=== PATIENT | female | born 1960 | race Caucasian/White ===

== ENCOUNTER 2018-02-02 13:37 | Emergency (ER) | payer BC ==
[2018-02-02 14:10] LABS: Bilirubin Negative (Negative); Blood, Urine Negative (Negative); Clarity CLEAR (Clear); Glucose, Urine (Dipstick) Negative (Negative); Leukocyte Negative (Negative); Nitrite Negative (Negative); Protein, Urine (Dipstick) Negative (Neg-Trace); Specific Gravity, Urine 1.014 (1.002-1.036); Urobilinogen 0.2 mg/dL (0.2-1.0)
[2018-02-02 14:34] LABS: #Basophils 0.1 thou/uL (0.0-0.2); #Eosinphils 0.5 thou/uL (0.0-0.7); #Lymphocytes 2.6 thou/uL (1.20-3.40); #Monocytes 0.6 thou/uL (0.11-0.59); #Neutrophils 4.5 thou/uL (1.40-6.50); %Basophils 1.1 % (0.0-1.0); %Eosinophils 6.5 % (0.0-10.0); %Lymphocytes 31.6 % (21.0-51.0); %Monocytes 7.3 % (0.0-10.0); %Neutrophils 53.5 % (42.0-75.0); Hemoglobin 10.1 g/dL (12.0-16.0); Mean Corpuscular HGB CONC 31.8 g/dL (32.0-36.0); Mean Corpuscular Hemoglobin 26.4 pg (27.0-31.0); Mean Corpuscular Volume 83.1 fL (78.0-98.0); Mean Platelet Volume 6.7 fL (7.4-10.4); Platelet Count 371 thou/uL (130-400); RBC Distribution Width 15.4 % (11.5-14.5); Red Blood Cell (RBC) Count 3.81 mill/uL (4.20-5.40); White Blood Cell (WBC) Count 8.4 thou/uL (4.8-10.8)
[2018-02-02 14:56] LABS: ALT (SGPT) 11 U/L (8-55); AST (SGOT) 14 U/L (5-34); Albumin 3.9 g/dL (3.5-5.0); Alkaline Phosphatase 90 U/L (40-150); Anion Gap 11 mmol/L (10-20); BUN (Urea Nitrogen) 22 mg/dL (9.8-20.1); Bilirubin, Total 0.2 mg/dL (0.2-1.2); Calc. Creatinine Clearance 0 mL/min (70-130); Calcium 9.4 mg/dL (7.8-10.44); Carbon Dioxide 26 mmol/L (22-29); Chloride 107 mmol/L (98-107); Estimated GFR-MDRD 79; Globulin 2.3 g/dL (2.4-3.5); Glucose 85 mg/dL (70-105); Potassium 4.2 mmol/L (3.5-5.1); Protein, Total 6.2 g/dL (6.0-8.3); Sodium 140 mmol/L (136-145)
[2018-02-02] MEDS ORDERED: Ketorolac Tromethamine 30 MG/ML VIAL ONE (15:03)
[2018-02-02] MEDS ORDERED: Methocarbamol 500 MG TAB PO SCH (15:30)
--- NOTE | 2018-02-02 16:25 | CT ---
CT ABDOMEN AND PELVIS WITH CONTRAST 02/02/18 COMPARISON: 03/21/17. HISTORY: Left flank pain and left abdominal pain while sitting at her desk at work. TECHNIQUE: Multiple contiguous axial images were obtained in a CT of the abdomen and pelvis with contrast. Coron al reformats were performed. IMPRESSION: The patient is status post cholecystectomy and hysterectomy. Surgical changes are seen in the anterio r aspect of the right kidney. The liver, left kidney, adrenal glands, spleen, and pancreas are unrema rkable. No free air, free fluid, or stranding changes are seen in the abdomen or pelvis. Postsurgical changes are seen in the stomach. There is a small hiatal hernia. There are a few scatter ed diverticula in the colon. The small bowel is normal in caliber. No abdominal or pelvic lymphadenopathy are seen. Atherosclerotic calcifications are seen in the aorta . Degenerative changes are seen in the spine. The visualized inferior thorax and abdominal wall soft tissues are unremarkable. IMPRESSION: 1. No evidence of acute intra-abdominal/pelvic abnormality. 2. Diverticulosis. POS: [facility]
== END 2018-02-02 16:30 | disposition home or self-care (01) ==
LOC: ERS 13:37
DX: M54.32 Sciatica, left side (principal); F98.8 Other specified behavioral and emotional disorders with onset usually occurring in childhood and adolescence; F17.210 Nicotine dependence, cigarettes, uncomplicated; Z79.899 Other long term (current) drug therapy
CPT/HCPCS: 36415; 74177; 80053; 81003; 85025; 87086; 96361; 96374; J1885

== ENCOUNTER 2018-11-25 21:20 | Emergency (ER) | payer BC ==
--- NOTE | 2018-11-25 22:07 | RAD ---
Right lower leg 2 views HISTORY: Right leg injury. FINDINGS: Tibia and fibula are intact. There are subtle oblique linear lucencies extending through th e anterior cortex of the upper tibia on the lateral view, through the posterior tibia on the lateral view, just posterior to the tibial spines, and through the medial base of the medial tibial s pine on the frontal view. Mild fluid distention of the suprapatellar bursa on the lateral view. IMPRESSION: Suspected nondisplaced fracture involving the proximal tibia. If this correlates with cli nical findings, CT could be performed for better evaluation.
[2018-11-25] MEDS ORDERED: Ketorolac Tromethamine 30 MG/ML VIAL ONE (23:00)
[2018-11-25] MEDS ORDERED: Fentanyl 100 MCG/2 ML VIAL ONE (23:33)
== END 2018-11-26 02:15 | disposition home or self-care (01) ==
LOC: ERS 21:20
DX: S82.141A Displaced bicondylar fracture of right tibia, initial encounter for closed fracture (principal); F98.8 Other specified behavioral and emotional disorders with onset usually occurring in childhood and adolescence; F17.210 Nicotine dependence, cigarettes, uncomplicated; Z79.899 Other long term (current) drug therapy; W01.198A Fall on same level from slipping, tripping and stumbling with subsequent striking against other object, initial encounter
CPT/HCPCS: 27532; 96372; 96374; J1885; J3010

== ENCOUNTER 2018-11-26 21:16 | Emergency (ER) | payer BC ==
--- NOTE | 2018-11-26 22:22 | RAD ---
Exam: Right tibia and fibula 2 views: HISTORY: Pain following injury COMPARISON: 11/25/2018 FINDINGS: Splint material stabilizes the lower leg. Again noted is a slightly comminuted but essentially nondis placed proximal tibial fracture centrally and involving the lateral tibial plateau. Stable from prior study. IMPRESSION: Stable proximal tibial fracture.
[2018-11-26] MEDS ORDERED: Fentanyl 100 MCG/2 ML VIAL ONE (23:15)
[2018-11-26] MEDS ORDERED: Ondansetron PF 4 MG/2 ML Vial ONE (23:15)
== END 2018-11-27 00:39 | disposition home or self-care (01) ==
LOC: ERS 21:16
DX: S82.101A Unspecified fracture of upper end of right tibia, initial encounter for closed fracture (principal); F98.8 Other specified behavioral and emotional disorders with onset usually occurring in childhood and adolescence; F17.210 Nicotine dependence, cigarettes, uncomplicated; Z79.899 Other long term (current) drug therapy; W18.09XA Striking against other object with subsequent fall, initial encounter
CPT/HCPCS: 29505; 96374; 96375; J2405; J3010

== ENCOUNTER 2018-12-03 13:13 | Outpatient (CLI) | payer BC ==
--- NOTE | 2018-12-03 14:02 | ULT ---
VENOUS DOPPLER ULTRASOUND OF THE RIGHT LOWER EXTREMITY: TECHNIQUE: Starr scale ultrasound with color flow and spectral Doppler imaging of the deep venous system of the r ight lower extremity is performed. HISTORY: Right lower extremity edema and pain. FINDINGS: There is good flow, compression, and augmentation noted in the right common femoral, femoral, deep fe moral, popliteal, posterior tibial, and greater saphenous veins. IMPRESSION: No evidence of deep vein thrombosis in the right lower extremity. POS: [facility]
== END 2018-12-03 13:14 | disposition home or self-care (01) ==
LOC: SCSULT 13:13
PROVIDERS: ATTEND Orthopaedic Surgery
DX: M79.89 Other specified soft tissue disorders (principal)